=== PATIENT | female | born 1990 | race Caucasian/White ===

== ENCOUNTER → 2019-04-19 | Outpatient (CLI) | payer OTHER ==
--- NOTE | 2019-04-20 11:30 | US ---
EXAM DESCRIPTION: Breast,Right: Ultrasound CLINICAL HISTORY: 28 yearsFemaleRT BREAST ABSCESS palpable mass lateral to the nipple. Occasional clear drainage. Lifetime risk of developing breast cancer (Tyrer-Cuzick model)(%): Not calculated COMPARISON: Other TECHNIQUE: Transcutaneous scanning of the right breast utilizing valle-scale and Doppler modes. Scanning performed by the ambulatory care nurse only.. Area Attendant notes: Skin opening overlying the mass. No drainage during the examination. FINDINGS: Ultrasound: Scanning of the right periareolar breast lateral. Subdermal hypoechoic tissue measuring 1.7 x 1.6 x 0.4 cm. Short tract to skin surface. No fluid component or calcification. Minimally vascular. IMPRESSION: Most likely subcutaneous cyst or gland. Benign exam. BIRAD CATEGORY: 2 BENIGN FINDINGS. RECOMMENDATIONS: FOLLOW UP: Written communication explaining the IMPRESSION and follow-up, will be mailed to the patient and referring health care provider. The region of interest should be followed on clinical grounds, and if noted to change in size or character, a targeted/directed follow-up ultrasound examination may be performed.. According to the [employer], yearly mammograms are recommended starting at age 40 and continuing as long as a woman is in good health. Any breast change noted on a breast self-exam should be reported promptly to the patient's healthcare provider. Electronically signed by: Reynaldo Woods MD 04/20/2019 11:28 AM [employer] SUPER[employer]OR
== END ==
LOC: US 10:28
PROVIDERS: ATTEND Nurse Practitioner Family
DX: N61.1 Abscess of the breast and nipple (principal)